=== PATIENT | male | born 1970 | race Caucasian/White ===

== ENCOUNTER 2017-01-21 02:05 | Emergency (ER) | payer MEDICAID, OTHER ==
[~2017-01-21] VITALS: Ht 165.1 cm; Wt 114.0 kg
[2017-01-21 02:13] VITALS: Ht 165.1 cm; Wt 114.0 kg
[2017-01-21] MEDS ORDERED: ONDANSETRON (ODT) 4 MG TAB ODT STA (03:58)
--- NOTE | 2017-01-21 04:05 | ERD ---
ER Documentation Chief Complaint Date/Time DATE: 01/21/17 TIME: 03:59 Chief Complaint DIZZINESS, NAUSEA WITHOUT VOMITING AND CONSTIPATION X 2 DAYS HPI This pleasant 46-year-old male patient presents to the emergency room with complaint of dizziness, described as lightheadedness and nausea without vomiting. 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 Patient reports he also had a sore throat at that time sore throat has resolved. Patient has a secondary complaint of constipation 2 days. Patient normally has a bowel movement every days, reports hard stool, though fiber diet. ROS All systems reviewed and are negative except as per history of present illness. PMhx/Soc Medical and Surgical Hx: pt denies Medical Hx, pt denies Surgical Hx History of Surgery: No (PT DENIES MEDICAL AND SURGICAL HX.) Anesthesia Reaction: No Hx Neurological Disorder: No Hx Respiratory Disorders: No Hx Cardiac Disorders: No Hx Psychiatric Problems: No Hx Miscellaneous Medical Probl: No Hx Alcohol Use: No Hx Substance Use: No Hx Tobacco Use: No (QUIT 8 YRS AGO.) Smoking Status: Never smoker Physical Exam Vitals Vital Signs Date Time Temp Pulse Resp B/P Pulse Ox O2 Delivery O2 Flow Rate FiO2 01/21/17 02:13 97.8 82 18 134/94 97 Physical Exam Const: No acute Head: Atraumatic Eyes: Normal Conjunctiva, PERRLA, EOMI ENT: Normal External Ears, Nose and Mouth. Mucous membranes moist Neck: Full range of motion. Resp: Clear to auscultation bilaterally Cardio: Regular rate and rhythm, no murmurs Abd: Abdomen soft, nondistended, nontender to palpation Skin: Back: Ext: Neur: Neuro: M/S: Alert and oriented Face: EOMI, face and pharynx with normal sensation and function Motor: Normal strength throughout Sensation: Normal sensation throughout Speech: Normal Cerebel: Normal coordination Normal gait DTR: 2+ and symmetric upper/lower extremities Psych: Normal Mood and Affect Procedures/MDM This pleasant 46-year-old male patient presents to emergency department with dizziness, lightheadedness, and nausea with constipation. Patient was seen 3 days ago for sore throat and nausea by primary care physician, patient reports that he was given medication for nausea, dizziness started yesterday. Patient describes dizziness as lightheaded, denies spinning. Patient reports constipation 2 days, patient reports he usually has bowel movement daily and has not gone in 2 days. He reports a low fiber diet in a sedentary lifestyle. Patient was given Zofran in emergency department, will be discharged home with meclizine and MiraLAX, diet discussed increasing fiber, water, activity, return to emergency room for worsening of symptoms, nausea, vomiting not responding to medication. I feel the patient is stable for discharge and outpatient management with primary care physician. I have discussed results, examination findings, the treatment plan with the patient and family present prior to discharge. Indications for emergent reevaluation, side effects of medication were also discussed. All questions were answered. Patient verbalizes understanding and agrees with plan of care. Departure Diagnosis: Primary Impression: Dizziness Additional Impression: Constipation Constipation type: unspecified constipation type Qualified Code: K59.00 - Constipation, unspecified constipation type Condition: Good Patient Instructions: Constipation (Adult), Dizziness (Vertigo) and Balance Problems: Ensuring Your Safety Additional Instructions: Thank you for for coming to [facility] for your care today. Please ask your nurse or provider if you have questions about your care today and do not leave until all your questions have been answered. Please use any medications given as directed and follow-up with your doctor (or the doctor you were referred to) in the next 2-3 days. If you do not have a primary care doctor you may follow up at the [facility] (listed below). You may also use motrin and tylenol as needed for fever and/or pain unless instructed otherwise by your provider or nurse. Indications for more urgent follow-up have been discussed, but you may return to the Emergency Department at ANY time for any worrisome or worsening symptoms. If you have abdominal pain, please know that no test or exam you received is perfect and you should follow up within 8 hours for continued pain. If you had any imaging studies today, such as an X-Ray or CT Scan, these studies will be reviewed later by a radiologist. You will be called if there are important findings that were not identified today, so make sure the contact information you provided at registration is correct. If you received any narcotic pain control medicine today, such as Vicodin, Morphine or Dilaudid, your coordination and judgment may be affected for a number of hours. Please do not drive or operate heavy machinery, and you may want someone to assist you at home. If you were given a prescription for narcotic medication, be aware that it is very addictive- use sparingly and only if necessary. MARYLU STANTON January 21, 2017 04:05
[2017-01-21] MEDS ORDERED: MECL12.574 PO (04:06)
[2017-01-21] MEDS ORDERED: POLY17PO6 PO (04:06)
[2017-01-21 04:20] VITALS: BP 161/110; PULSE 85; RESP 18; TEMP 97.8
== END 2017-01-21 04:20 | disposition home or self-care (01) ==
LOC: FTE 02:05
DX: R42 Dizziness and giddiness (principal); K59.00 Constipation, unspecified; R11.0 Nausea; Z87.891 Personal history of nicotine dependence
CPT/HCPCS: Z7502; Z7610; 99283